=== PATIENT | female | born 1960 | race Caucasian/White ===

== ENCOUNTER 2017-07-04 12:15 | Emergency (ER) | payer MEDICAID, OTHER ==
[2017-07-04] MEDS ORDERED: KETOROLAC 30 MG INJ IM (14:50)
[2017-07-04] MEDS: KETOROLAC 30 MG INJ IM (14:50)
== END 2017-07-04 16:17 | disposition home or self-care (01) ==
LOC: FTE 12:15
DX: M25.562 Pain in left knee (principal); M54.5 Low back pain
CPT/HCPCS: 96372; 99284-25

== ENCOUNTER 2017-12-22 08:56 | Emergency (ER) | payer MEDICAID ==
[2017-12-22] MEDS: IBUPROFEN 800 MG TAB PO (09:27)
[2017-12-22 09:31] LABS: URINE BLOOD (Dip) POC 2+ (NEGATIVE); URINE GLUCOSE (Dip) POC Negative (NEGATIVE); URINE KETONES (Dip) POC Negative (NEGATIVE); URINE LEUKOCYTE EST (Dip) POC 2+ (NEGATIVE); URINE NITRITE (Dip) POC Positive (NEGATIVE); URINE TOTAL PROTEIN POC 1+ (NEGATIVE)
[2017-12-22 09:31] LABS: URINE PH (Dip) POC 6.5 (5.0-8.5)
[2017-12-22] MEDS: LIDOCAINE 1% (MDV) 50 ML INJ INJ (10:23)
[2017-12-22] MEDS: CEFTRIAXONE 1 GM INJ IM (10:24)
[2017-12-22] MEDS: LIDOCAINE 1% (MDV) 10 ML INJ INJ (10:40)
== END 2017-12-22 10:25 | disposition home or self-care (01) ==
LOC: FTE 08:56
DX: N39.0 Urinary tract infection, site not specified (principal); R31.9 Hematuria, unspecified
CPT/HCPCS: 81003; 87086; 96372; 99284-25

== ENCOUNTER 2018-01-11 10:56 | Emergency (ER) | payer MEDICAID ==
[2018-01-11 12:54] LABS: URINE BLOOD (Dip) POC Trace-lysed (NEGATIVE); URINE GLUCOSE (Dip) POC Negative (NEGATIVE); URINE KETONES (Dip) POC Negative (NEGATIVE); URINE LEUKOCYTE EST (Dip) POC 1+ (NEGATIVE); URINE NITRITE (Dip) POC Negative (NEGATIVE); URINE TOTAL PROTEIN POC Negative (NEGATIVE)
[2018-01-11 12:54] LABS: URINE PH (Dip) POC 5.5 (5.0-8.5)
[2018-01-12] MEDS ORDERED: IOHEXOL 300MG/ML 150 ML BTL (19:42)
[2018-01-12] MEDS ORDERED: SOD CHLORIDE 0.9% 100 ML (19:42)
== END 2018-01-11 13:43 | disposition home or self-care (01) ==
LOC: FTE 10:56
DX: N39.0 Urinary tract infection, site not specified (principal)
CPT/HCPCS: 81003; 87086; 99283